=== PATIENT | female | born 1960 | race American Indian/Alaskan Native ===

== ENCOUNTER 2017-08-04 15:30 | Emergency (ER) | payer OTHER ==
[~2017-08-04] VITALS: Ht 162.6 cm; Wt 49.0 kg
[~2017-08-04 15:30] MED LIST: CHLO5 PO; CIME400; HYDACE5 PO; LIBRIUM; METO25ER PO; RXHYDACE PO; VENL25 PO
[2018-07-03] MEDS ORDERED: CHLO10 (11:44)
== END 2017-08-04 19:00 | disposition home or self-care (01) ==
LOC: ER 15:30
DX: S00.83XA Contusion of other part of head, initial encounter (principal); S00.12XA Contusion of left eyelid and periocular area, initial encounter; Z88.5 Allergy status to narcotic agent; Z79.899 Other long term (current) drug therapy; F17.200 Nicotine dependence, unspecified, uncomplicated; Y00.XXXA Assault by blunt object, initial encounter
CPT/HCPCS: 70486; 71101; 99284

== ENCOUNTER 2018-06-01 14:21 | Emergency (ER) | payer OTHER ==
[~2018-06-01] VITALS: Ht 162.6 cm; Wt 49.9 kg
[2018-06-01] MEDS ORDERED: Bactrim Ds Tab1 EACH PO (14:52)
== END 2018-06-01 15:00 | disposition home or self-care (01) ==
LOC: ER 14:21
DX: L02.512 Cutaneous abscess of left hand (principal); F17.210 Nicotine dependence, cigarettes, uncomplicated; Z88.5 Allergy status to narcotic agent; Z79.899 Other long term (current) drug therapy
CPT/HCPCS: 99282

== ENCOUNTER 2020-12-18 18:28 | Emergency (ER) | payer OTHER ==
[~2020-12-18] VITALS: Ht 162.6 cm; Wt 54.4 kg
[~2020-12-18 18:28] MED LIST changes: +Bactrim Ds Tab1 EACH PO; +CHLO10
[2020-12-18] MEDS ORDERED: Cleocin HCl300 MG PO (18:56)
== END 2020-12-18 19:08 | disposition home or self-care (01) ==
LOC: ER 18:28
DX: L02.512 Cutaneous abscess of left hand (principal); J44.9 Chronic obstructive pulmonary disease, unspecified; I10 Essential (primary) hypertension; F17.210 Nicotine dependence, cigarettes, uncomplicated; Z88.5 Allergy status to narcotic agent; Z88.0 Allergy status to penicillin; Z79.899 Other long term (current) drug therapy
CPT/HCPCS: 99282

== ENCOUNTER 2022-10-20 18:24 | Observation (INO) | payer OTHER ==
[~2022-10-20] VITALS: Ht 162.6 cm; Wt 47.2 kg
[~2022-10-20 18:24] MED LIST changes: +Cleocin HCl300 MG PO
[2022-10-20 19:38] LABS: Source, Urine Straight Cath
[2022-10-20 19:48] LABS: BASOPHILS ABSOLUTE AUTO 0.06 K/mm3 (0.00-0.23); BASOPHILS PERCENT AUTO 1 % (0-2); EOSINOPHILS ABSOLUTE AUTO 0.29 K/mm3 (0.00-0.68); EOSINOPHILS PERCENT AUTO 5 % (0-6); Hematocrit 43.3 % (33.0-51.0); Hemoglobin 14.2 g/dL (11.5-16.0); IMMATURE GRAN ABSOLUTE AUTO 0.01 K/mm3 (0.00-0.10); IMMATURE GRAN PERCENT AUTO 0 % (0-1); LYMPHOCYTES ABSOLUTE AUTO 2.44 K/mm3 (0.84-5.20); LYMPHOCYTES PERCENT AUTO 43 % (21-46); MONOCYTES ABSOLUTE AUTO 0.31 K/mm3 (0.16-1.47); MONOCYTES PERCENT AUTO 5 % (4-13); Mean Corpuscular HGB Conc 32.8 g/dL (31.5-36.5); Mean Corpuscular Volume 85 fL (80-100); Mean Platelet Volume 9.8 fL (9.1-12.4); NEUTROPHILS ABSOLUTE AUTO 2.59 K/mm3 (1.96-9.15); NEUTROPHILS PERCENT AUTO 45 % (41-73); Platelet Count 265 K/mm3 (150-400); RDW Coefficient Variation 13.7 % (11.7-14.2); RDW Standard Deviation 42.7 fL (35.1-46.3); Red Blood Cell Count 5.07 M/mm3 (3.80-5.20)
[2022-10-20 19:49] LABS: Appearance, Urine Clear (Clear); Bilirubin, Urine Neg (Neg); Blood, Urine Neg (Neg); Color, Urine Yellow (P-Yellow); Glucose Qualitative, Urine Neg (Neg); Ketones, Urine Neg (Neg); Leukocyte Esterase, Urine Neg (Neg); Nitrite, Urine Neg (Neg); Protein, Urine 2+ (Neg); Urobilinogen, Urine NORM (Normal)
[2022-10-20 19:59] LABS: Albumin, Blood 3.7 g/dL (3.4-5.0); Albumin/Globulin Ratio 0.8 (0.8-1.8); Bilirubin, Total 0.2 mg/dL (0.1-1.0); Bun/Creatinine Ratio 24.8 (12.0-20.0); Calcium, Blood 9.4 mg/dL (8.5-10.1); Creatinine, Blood 1.09 mg/dL (0.40-1.00); Globulin, Blood 4.5 g/dL (2.2-4.0); Potassium, Blood 3.7 mmol/L (3.5-5.5); Total Protein, Blood 8.2 g/dL (6.4-8.2)
[2022-10-20 20:07] LABS: Granular Casts 0-2 /lpf (0); Mucus Light (0-Heavy); WBC Cast 0-2 /lpf (0)
[2022-10-20 20:08] LABS: Bacteria Mod /hpf; Red Blood Cells, Urine 0-2 /hpf (0-2); Squamous Epithelial Cells Rare /hpf (Few); White Blood Cells, Urine 0-2 /hpf (0-5)
[2022-10-20 20:14] LABS: U Amphetamine Screen DETECTED; U Barbituate Screen Not Detected; U Benzodiazapine Screen Not Detected; U Buprenorphine Screen Not Detected; U Cannabinoids Screen Not Detected; U Cocaine Screen Not Detected; U Methadone Screen Not Detected; U Methamphetamine Screen DETECTED; U Opiates Screen Not Detected; U Oxycodone Screen Not Detected; U Phencyclidine Screen Not Detected; U Propoxyphene Screen Not Detected
[2022-10-21 03:51] LABS: BASOPHILS ABSOLUTE AUTO 0.07 K/mm3 (0.00-0.23); BASOPHILS PERCENT AUTO 1 % (0-2); EOSINOPHILS ABSOLUTE AUTO 0.38 K/mm3 (0.00-0.68); EOSINOPHILS PERCENT AUTO 4 % (0-6); Hemoglobin 14.6 g/dL (11.5-16.0); IMMATURE GRAN ABSOLUTE AUTO 0.02 K/mm3 (0.00-0.10); IMMATURE GRAN PERCENT AUTO 0 % (0-1); LYMPHOCYTES ABSOLUTE AUTO 3.68 K/mm3 (0.84-5.20); LYMPHOCYTES PERCENT AUTO 39 % (21-46); MONOCYTES ABSOLUTE AUTO 0.64 K/mm3 (0.16-1.47); MONOCYTES PERCENT AUTO 7 % (4-13); Mean Corpuscular HGB 28.5 pg (26.0-34.0); Mean Corpuscular Volume 84 fL (80-100); Mean Platelet Volume 8.8 fL (9.1-12.4); NEUTROPHILS ABSOLUTE AUTO 4.63 K/mm3 (1.96-9.15); NEUTROPHILS PERCENT AUTO 49 % (41-73); Platelet Count 327 K/mm3 (150-400); RDW Coefficient Variation 13.6 % (11.7-14.2); RDW Standard Deviation 41.8 fL (35.1-46.3); Red Blood Cell Count 5.13 M/mm3 (3.80-5.20); White Blood Cell Count 9.42 K/mm3 (4.00-11.30)
[2022-10-21 04:16] LABS: Albumin, Blood 3.7 g/dL (3.4-5.0); Anion Gap 5 mmol/L (6-16); Blood Urea Nitrogen 26 mg/dL (8-24); Bun/Creatinine Ratio 26.2 (12.0-20.0); CO2, Blood 27 mmol/L (21-32); Calcium, Blood 9.5 mg/dL (8.5-10.1); Chloride, Blood 103 mmol/L (98-108); Creatinine, Blood 0.99 mg/dL (0.40-1.00); Glomerular Filtration Rate 64 (60-); Glucose, Blood 169 mg/dL (70-99); Phosphorus, Blood 3.1 mg/dL (2.5-4.9); Potassium, Blood 3.4 mmol/L (3.5-5.5); Sodium, Blood 135 mmol/L (136-145)
--- NOTE | 2022-10-21 06:15 | NUR ---
Assumed care of patient at 0124 as an ER admit. A/Ox4 and cooperative with care. SBA to [facility]. Fall precautions in place as patient has recent hx of falls. Pupils b/l are pinpoint. Maintains over 95% on RA, LS clear t/o. SR-ST low 100's. Denies CP/pressure, BP elevated (reason for admit). An additional dose of 20mg Hydralazine carlito SBP from 180 to 130's. Patient able to sleep part of the night. Discharge concerns for patient is that she reports issues obtaining her heart medication due to not having a vehicle and due to her alcohol use. Patient has no desire to quit alcohol or any chemicals. Will report to dayshift RN.
[2022-10-21] MEDS ORDERED: AMLO5 PO (11:06)
[2022-10-21] MEDS ORDERED: ATOR10 PO (11:07)
--- NOTE | 2022-10-21 16:49 | NUR ---
SHIFT SUMMARY/DISCHARGE PT A/O X4. PT FATIGUED AND SLEPT MAJORITY OF SHIFT. SHE WAS EASILY AWOKEN. PT WAS COOPERATIVE WITH CARE. HER HR WAS IN THE 80'S, SINUS RHYTHM. HER BP WAS STABILIZED WITH SBP IN THE 120-130'S. PT WAS ASYMPTOMATIC AND DENIED ANY FURTHER NEEDS. PT WAS INDEPENDENT IN THE ROOM. PT DISCHARGED @ APPROX 1435. SHE WAS TAKEN OUT TO A FAMILY MEM[facility]ERS CAR IN WHEEL CHAIR. DISCHARGE INSTRUCTIONS WERE DISCUSSED AT LENGTH WITH PATIENT. 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
== END 2022-10-21 14:35 | disposition home or self-care (01) ==
LOC: ER 18:24 → PCU 18:25 → ER 10-21 01:14 → ERHOLD 10-21 01:14 → PCU 10-21 01:20
PROVIDERS: Emergency Medicine; ADMIT Internal Medicine
DX: I16.0 Hypertensive urgency (principal); I10 Essential (primary) hypertension; F10.20 Alcohol dependence, uncomplicated; F17.200 Nicotine dependence, unspecified, uncomplicated; F15.10 Other stimulant abuse, uncomplicated; Z88.0 Allergy status to penicillin; Z88.5 Allergy status to narcotic agent
CPT/HCPCS: 36415; 51701; 70450; 73562-LT; 80053; 80069; 81001; 83735; 84484; 85025; 87086; 90686; 93005; 93010; 96374-59; 99285-25; A9270; G0480; J0360

== ENCOUNTER → 2024-07-05 | Outpatient (CLI) | payer OTHER ==
[~2024-07-05] MED LIST changes: +AMLO5 PO; +ATOR10 PO
[2024-07-06 11:16] LABS: Candida Group, PCR NOT DETECTED (NOT DETECT); Candida glabrata-krusei, PCR NOT DETECTED (NOT DETECT)
[2024-07-06 11:18] LABS: Bacterial Vaginosis PCR Positive (NEGATIVE)
== END | disposition home or self-care (01) ==
LOC: LAB SHORT 17:29 → LAB 17:29
PROVIDERS: Physician Assistant Surgical
DX: N76.5 Ulceration of vagina (principal); N76.6 Ulceration of vulva
CPT/HCPCS: 87086; 87481; 87661; 87801